=== PATIENT | male | born 1980 | race Caucasian/White ===

== ENCOUNTER 2017-10-07 08:50 | Inpatient (IN) | payer SELFPAY ==
[~2017-10-07] VITALS: Ht 185.4 cm; Wt 168.2 kg
[~2017-10-07 08:50] MED LIST: ASPIR-TRIN325 M1 PO; FIORICET 50-301 EACH PO; HYDROCHLOROTHIA25 MG PO; MOTRIN600 MG PO; NORCO 5/3251 TABLET PO; PREVACID30 MG PO; ZESTRIL,PRINIVI20 MG PO
[2017-10-07 09:48] LABS: BASOPHIL (%) 0.6 % (0-1); BASOPHIL COUNT 0.1 K/uL (0-0.1); EOSINOPHIL (%) 1.2 % (0-5); EOSINOPHIL COUNT 0.2 K/uL (0-0.3); HEMATOCRIT 41.1 % (38.0-50.0); IMMATURE GRANULOCYTE (%) 0.9 % (0.0-0.7); LYMPHOCYTE (%) 11.1 % (15-42); LYMPHOCYTE COUNT 1.5 K/uL (1.0-2.8); MCH 29.8 PG (29.0-34.0); MCHC 34.1 G/DL (30.0-36.0); MCV 87.4 FL (86-99); MONOCYTE (%) 7.5 % (3-12); NEUTROPHIL (%) 78.7 % (45-76); NEUTROPHIL COUNT 10.8 K/uL (1.8-6.4); PLATELET COUNT 348 K/uL (156-360); RBC DIS.WIDTH-CV 12.8 % (11.8-14.6); RBC DIS.WIDTH-SD 40.8 % (39-53); WHITE BLOOD COUNT 13.7 K/uL (4.1-10.2)
[2017-10-07 09:57] LABS: ALBUMIN 3.9 g/dL (3.2-4.8)
[2017-10-07 09:58] LABS: CHLORIDE 95 mEq/L (99-109); POTASSIUM 4.1 mEq/L (3.7-5.4); SODIUM 132 mEq/L (136-147)
[2017-10-07 10:00] LABS: TOTAL PROTEIN 7.2 g/dL (6.4-8.3)
[2017-10-07 10:02] LABS: TOTAL BILIRUBIN 1.4 mg/dL (0.0-1.0)
[2017-10-07 10:03] LABS: ALKALINE PHOSPHATASE 134 IU/L (3-129)
[2017-10-07 10:04] LABS: CREATININE 0.9 mg/dL (0.6-1.3); GFR ESTIMATE (CALCULATED) > 59 mL/min/ (58.99-99999)
[2017-10-07 10:04] LABS: APPEARANCE CLEAR ((CLEAR)); BILIRUBIN NEGATIVE; BLOOD NEGATIVE; COLOR STRAW ((YELLOW)); GLUCOSE (STRIP) >=500; KETONES 80; LEUKOCYTES NEGATIVE; NITRITE NEGATIVE; PROTEIN (STRIP) NEGATIVE; SPECIFIC GRAVITY 1.035 (1.000-1.030); UCUL ADDED? NO; UROBILINOGEN 0.2 MG/DL (0.2-1.0)
[2017-10-07 10:05] LABS: AST (GOT) 16 IU/L (2-34); UREA NITROGEN (BUN) 8 mg/dL (9-23)
[2017-10-07 10:07] LABS: ALT (GPT) 16 IU/L (3-49)
[2017-10-07 10:08] LABS: GLUCOSE 417 mg/dL (70-99)
[2017-10-07 11:28] LABS: CARBOXY HGB 2.9 % (0-5); METHEMOGLOBIN 1.2 % (0-1.5); PCO2 39 mm Hg (35-45); PO2 89 mm Hg (80-100)
[2017-10-07 11:29] LABS: BASE EXCESS -0.5 mEq/L (-3 to +3); BICARBONATE 24.2 mEq/L (22-26); COMMENTS - BLOOD GASES A+C+; DEVICE NC; O2 FLOW 2 L/MIN; SITE RR
[2017-10-07] MEDS ORDERED: ADVIL,NUPRIN,M200 MG PO (12:41)
[2017-10-07] MEDS ORDERED: TYLENOL REGULA325 MG PO (12:41)
[2017-10-07 13:07] LABS: CHLORIDE 99 mEq/L (99-109); SODIUM 132 mEq/L (136-147)
[2017-10-07 13:09] LABS: GLUCOSE 387 mg/dL (70-99)
[2017-10-07 13:13] LABS: CREATININE 0.8 mg/dL (0.6-1.3); GFR ESTIMATE (CALCULATED) > 59 mL/min/ (58.99-99999)
[2017-10-07 13:14] LABS: UREA NITROGEN (BUN) 8 mg/dL (9-23)
[2017-10-07 17:37] LABS: CHLORIDE 100 MEQ/L (99-109); CREATININE 0.6 MG/DL (0.6-1.3); GFR ESTIMATE (CALCULATED) > 59 mL/min/ (58.99-99999); GLUCOSE 258 mg/dL (70-99); POTASSIUM 4.3 MEQ/L (3.7-5.4); SODIUM 137 MEQ/L (136-147); UREA NITROGEN (BUN) 8 mg/dL (9-23)
[2017-10-07 18:11] VITALS: BP 143/84
[2017-10-07 19:39] VITALS: BP 128/67
[2017-10-07 23:12] VITALS: BP 136/66
[2017-10-08 03:08] VITALS: BP 157/84
[2017-10-08 06:13] LABS: HEMATOCRIT 42.3 % (38.0-50.0); HEMOGLOBIN 13.4 G/DL (12.5-16.6); MCH 28.5 PG (29.0-34.0); MCHC 31.7 G/DL (30.0-36.0); PLATELET COUNT 337 K/uL (156-360); RBC DIS.WIDTH-CV 12.9 % (11.8-14.6); RBC DIS.WIDTH-SD 42.7 % (39-53); WHITE BLOOD COUNT 13.3 K/uL (4.1-10.2)
[2017-10-08 06:36] LABS: CHLORIDE 101 MEQ/L (99-109); CREATININE 0.7 MG/DL (0.6-1.3); GFR ESTIMATE (CALCULATED) > 59 mL/min/ (58.99-99999); GLUCOSE 362 mg/dL (70-99); HDL CHOLESTEROL 23 MG/DL (Desirable>=40); LDL CHOLESTEROL 64 mg/dL (Desirable<100); NON-HDL CHOLESTEROL 110 mg/dL (Desirable<160); POTASSIUM 4.9 MEQ/L (3.7-5.4); SODIUM 136 MEQ/L (136-147); TOTAL CHOLESTEROL 133 mg/dL (Desirable<200); TRIGLYCERIDES 229 MG/DL (Normal: <150); UREA NITROGEN (BUN) 11 mg/dL (9-23)
[2017-10-08 07:05] VITALS: BP 124/62
[2017-10-08 09:54] LABS: HEMOGLOBIN A1c (GLYCOHEMOGLOB) 11.1 % (Below 5.7)
[2017-10-08 11:36] VITALS: BP 117/64
[2017-10-08 15:50] VITALS: BP 136/79
[2017-10-08 22:41] VITALS: BP 148/69
[2017-10-09 06:37] LABS: BASOPHIL (%) 0.8 % (0-1); BASOPHIL COUNT 0.1 K/uL (0-0.1); EOSINOPHIL (%) 3.6 % (0-5); EOSINOPHIL COUNT 0.3 K/uL (0-0.3); HEMATOCRIT 37.1 % (38.0-50.0); HEMOGLOBIN 12.1 G/DL (12.5-16.6); IMMATURE GRANULOCYTE (%) 2.1 % (0.0-0.7); LYMPHOCYTE (%) 19.7 % (15-42); LYMPHOCYTE COUNT 1.5 K/uL (1.0-2.8); MCH 29.4 PG (29.0-34.0); MCHC 32.6 G/DL (30.0-36.0); MONOCYTE (%) 6.3 % (3-12); MONOCYTE COUNT 0.5 K/uL (0-0.8); NEUTROPHIL (%) 67.5 % (45-76); NEUTROPHIL COUNT 5.3 K/uL (1.8-6.4); PLATELET COUNT 330 K/uL (156-360); RBC DIS.WIDTH-CV 12.7 % (11.8-14.6); RBC DIS.WIDTH-SD 41.9 % (39-53); RED BLOOD COUNT 4.12 M/uL (4.00-5.50); WHITE BLOOD COUNT 7.8 K/uL (4.1-10.2)
[2017-10-09 07:08] LABS: CHLORIDE 104 MEQ/L (99-109); CREATININE 0.6 MG/DL (0.6-1.3); GFR ESTIMATE (CALCULATED) > 59 mL/min/ (58.99-99999); GLUCOSE 246 mg/dL (70-99); POTASSIUM 4.5 MEQ/L (3.7-5.4); SODIUM 138 MEQ/L (136-147); UREA NITROGEN (BUN) 12 mg/dL (9-23)
[2017-10-09 07:15] VITALS: BP 146/70
[2017-10-09 15:10] VITALS: BP 143/87
[2017-10-09 23:56] VITALS: BP 167/78
[2017-10-10 07:40] VITALS: BP 154/91
[2017-10-10] MEDS ORDERED: METFORMIN HCL500 M4 PO (11:31)
[2017-10-10] MEDS ORDERED: CLEOCIN300 MG PO (11:31)
[2017-10-10 16:35] VITALS: BP 157/77
== END 2017-10-10 16:32 | disposition home or self-care (01) | DRG 854 ==
LOC: EME 08:50 → EDOF 13:32 → 5EAST 13:32 → ENRESERV 13:36 → 5EAST 16:33
PROVIDERS: Emergency Medicine; Internal Medicine; Physician Assistant
DX: A41.9 Sepsis, unspecified organism (principal); L02.214 Cutaneous abscess of groin; E87.2 Acidosis; L03.314 Cellulitis of groin; L03.115 Cellulitis of right lower limb; E86.0 Dehydration; E11.9 Type 2 diabetes mellitus without complications; I10 Essential (primary) hypertension; K40.90 Unilateral inguinal hernia, without obstruction or gangrene, not specified as recurrent; K42.9 Umbilical hernia without obstruction or gangrene; K76.0 Fatty (change of) liver, not elsewhere classified; F17.210 Nicotine dependence, cigarettes, uncomplicated; E66.01 Morbid (severe) obesity due to excess calories; Z68.42 Body mass index [BMI] 45.0-49.9, adult
CPT/HCPCS: 36600; 74177; 80048; 80048 91; 80053; 80061; 81003; 82010; 82803; 82948; 83036; 83605; 85025; 85027; 87040; 87070; 87075; 87077; 87186; 87205; 94799; 99281; 99285; J0295; J0330; J0696; J1100; J1815; J2405; J3010; J7030; J7050